=== PATIENT | female | born 1955 | race Caucasian/White ===

== ENCOUNTER 2017-05-01 21:26 | Emergency (ER) | payer BC ==
[~2017-05-01] VITALS: Ht 154.9 cm; Wt 63.7 kg
[~2017-05-01 21:26] MED LIST: B-12 KIT1000 MCG/1 IJ; B-122500 MCG SL; BIAXIN500 MG PO; CALCIUM CITRAT1 EA15 PO; CALCIUM600 MG PO; CYMBALTA30 MG PO; CYMBALTA60 MG PO; DILAUDID2 MG PO; FENTANYL1 EAC5 TD; FIORINAL 50-321 EACH PO; FLAGYL500 MG PO; GABAPENTIN100 MG PO; HYDROCODON-ACE1 EA10 PO; HYOSCYAMINE0.375 MG PO; KETAMINE H50 MG/1 ML INJ; KLOR-CON SPRIN10 MEQ PO; LAMOTRIGINE150 MG PO; LEVOTHYROXINE100 MCG PO; MAXALT10 MG PO; MIRALAX119 GM PO; MULTI VITAMIN1 EACH PO; NEXIUM40 M1 PO; NORCO 10-325 T1 EACH PO; NORCO 5-325 TA1 EACH; NORTRIPTYLINE H75 MG PO; PREDNISONE5 MG PO; PRILOSEC20 MG; PROMETHAZINE HC25 M1 PO; RANITIDINE HCL300 MG PO; SULFAMETHOXAZO1 EAC1 PO; SYNTHROID100 MCG; TOPAMAX25 MG PO; TRAMADOL HCL50 MG PO; TRAZODONE HCL100 MG PO; VITAMIN D250000 UNIT PO
[2017-05-01] MEDS ORDERED: ROPINIROLE HCL1 MG PO (21:50)
[2017-05-01] MEDS ORDERED: OMEPRAZOLE20 MG PO (21:50)
[2017-07-08] MEDS ORDERED: SUBOXONE 2 MG-1 EAC2 SL (13:36)
[2017-07-08] MEDS ORDERED: ZOFRAN ODT4 MG PO (13:37)
== END 2017-05-02 04:44 | disposition short-term general hospital (02) ==
LOC: ED 21:26
PROC: 009U3ZZ Drainage of Spinal Canal, Percutaneous Approach (ICD-10-PCS; principal; 2017-05-01)
DX: R41.82 Altered mental status, unspecified (principal); Z88.0 Allergy status to penicillin; Z88.5 Allergy status to narcotic agent; Z79.899 Other long term (current) drug therapy
CPT/HCPCS: 62270; 70450; 80053; 81001; 82945; 84157; 85025; 85032; 85610; 85730; 87070; 87077; 87186; 87205; 89051; 96374; 96375; 96376; 99285; J1170; J2060; J2250

== ENCOUNTER 2022-01-17 18:44 | Emergency (ER) | payer MEDICARE, BC ==
[~2022-01-17] VITALS: Ht 167.6 cm; Wt 54.4 kg
[~2022-01-17 18:44] MED LIST changes: +CYANOCOBAL1000 MCG/M IM; +FOLIC ACID1 MG PO; +HYOSCYAMINE0.375 M2 PO; +LAMICTAL25 MG PO; +OMEPRAZOLE20 MG PO; +PROLIA60 MG/1 ML SUB-Q; +ROPINIROLE HCL1 MG PO; +SUBOXONE 2 MG-1 EAC2 SL; +VITAMIN D21250 MCG PO; +ZOFRAN ODT4 MG PO
--- OUTSIDE RECORDS SUMMARY | 2022-01-17 18:48 | XMS ---
PreManage Notification: KLARISSA SANCHEZ Security Mold Blower Events No recent Security Events currently on file CRITERIA MET - PDMP CARE PROVIDERS Shanon Mauor-C Nurse Practitioner: Family Current PHONE: [phone] César has no Care Guidelines for this patient. E.DLoulou VISIT COUNT (12 MO.) 1 ARMOND Peterson TOTAL 1 NOTE: Visits indicate total known visits. ED/UCC VISIT TRACKING (12 MO.) 01/17/2022 18:47 [facility] OR TYPE: Emergency COMPLAINT: - ABNORMAL LABS INPATIENT VISIT TRACKING (12 MO.) No inpatient visits to display in this time frame [id number]
[2022-01-18] MEDS ORDERED: VENTOLIN HFA18 GM INH (00:45)
[2022-01-18] MEDS ORDERED: HYDROCODON-ACE1 EA10 PO (00:45)
[2022-01-18] MEDS ORDERED: LEVOFLOXACIN500 MG PO (00:45)
== END 2022-01-18 01:32 | disposition home or self-care (01) ==
LOC: ED 18:44
DX: R91.8 Other nonspecific abnormal finding of lung field (principal); Z88.0 Allergy status to penicillin; Z88.5 Allergy status to narcotic agent; Z79.899 Other long term (current) drug therapy; Z20.822 Contact with and (suspected) exposure to COVID-19
CPT/HCPCS: 36415; 71260; 80053; 83605; 85025; 87502; 99284-25; A9270; J7121; Q9967; U0003